=== PATIENT | male | born 1995 | race Caucasian/White ===

== ENCOUNTER 2019-08-16 10:40 | Emergency (ER) | payer MEDICAID ==
--- NOTE | 2019-08-16 10:45 | EDM.PDOC ---
ED HPI GENERAL MEDICAL PROBLEM - General Chief Complaint: Upper Extremity Injury/Pain Stated Complaint: LT RING FINGER INJURY Time Seen by Provider: 08/16/19 10:45 Source of Information: Reports: Patient History Limitations: Reports: No Limitations - History of Present Illness INITIAL COMMENTS - FREE TEXT/NARRATIVE: 24-year-old male who reports he was playing basketball 2 days ago and the basketball jammed his left thumb and left fourth finger. He has had minor pain along the ulnar aspect of his left proximal thumb and also more severe pain in the left fourth finger. He has full range of motion in his left thumb and also feels that he has full strength in this area. He has limited range of motion in the left fourth finger and there is swelling and ecchymosis in this area as well. There is no redness or increased warmth in the fourth finger. He is rating the pain in his fourth finger as a 7/10. It is a sharp and throbbing pain that is worse with movement and with palpation. There are no open wounds. No other injuries. There are no other associated signs or symptoms. There are no other modifying factors. Onset: Other (2 days ago) Duration: Constant Location: Reports: Upper Extremity, Left (Left fourth finger and left thumb) Quality: Reports: Sharp, Throbbing Severity: Moderate Improves with: Reports: Rest Worsens with: Reports: Other (Palpation), Movement Context: Reports: Trauma Associated Symptoms: Reports: No Other Symptoms Treatments [employer]: Reports: Other (see below) - Related Data Allergies Allergy/AdvReac Type Severity Reaction Status Date / Time Penicillins Allergy Rash Verified 08/16/19 11:00 Home Meds: Home Meds Sulfamethoxazole/Trimethoprim [Bactrim Ds Tablet] 1 each PO BID #20 tablet 05/27 [Rx] Past Medical History Psychiatric History: Reports: Schizophrenia (On no medications.) - Infectious Disease History Infectious Disease History: Reports: MRSA - Past Surgical History Other Surgical History Comment: Incision and drainage of left fourth finger abscess (MRSA). Social & Family History - Tobacco Use Smoking Status *Q: Current Every Day Smoker - Alcohol Use Alcohol Use History: Yes Alcohol Use Frequency: Weekly - Living Situation & Occupation Occupation: Disabled Review of Systems - Review of Systems Review Of Systems: See Below Constitutional: Reports: No Symptoms Eyes: Reports: No Symptoms Ears: Reports: No Symptoms Nose: Reports: No Symptoms Mouth/Throat: Reports: No Symptoms Respiratory: Reports: No Symptoms Cardiovascular: Reports: No Symptoms GI/Abdominal: Reports: No Symptoms Genitourinary: Reports: No Symptoms Musculoskeletal: Reports: Other (Right hand dominant. Left fourth finger pain. Her left thumb pain) Skin: Reports: Bruising (Over left fourth finger) Neurological: Reports: No Symptoms ED EXAM, GENERAL - Physical Exam Exam: See Below Exam Limited By: No Limitations General Appearance: Alert, WD/WN, Mild Distress (Nontoxic appearing) Eye Exam: Bilateral Eye: EOMI, Normal Inspection Ears: Normal External Exam, Hearing Grossly Normal Ear Exam: Bilateral Ear: Auricle Normal Nose: Normal Inspection, Normal Mucosa, No Blood Throat/Mouth: Normal Inspection, Normal Lips, Normal Oropharynx, Normal Voice, No Airway Compromise Head: Atraumatic, Normocephalic Neck: Normal Inspection, Supple, Non-Tender, Full Range of Motion Respiratory/Chest: No Respiratory Distress, Lungs Clear, Normal Breath Sounds, No Accessory Muscle Use, Chest Non-Tender Cardiovascular: Normal Peripheral Pulses, Regular Rate, Rhythm, No Murmur Peripheral Pulses: 2+: Radial (L), Radial (R) GI/Abdominal: Normal Bowel Sounds, Soft, Non-Tender, No Mass Back Exam: Normal Inspection Extremities: Normal Capillary Refill, Limited Range of Motion (Left fourth finger.), Other (Ecchymosis over left fourth finger with swelling. There is full range of motion and full function in the left thumb. There is some mild tenderness over the left thumb ulnar collateral ligament area.) Neurological: Alert, Oriented, CN II-XII Intact, Normal Cognition, No Motor/ Sensory Deficits Skin Exam: Warm, Dry, Intact, Normal Color, No Rash Course - Vital Signs Last Recorded V/S: Last Vital Signs Temp 36.1 C 08/16/19 11:00 Pulse 76 08/16/19 11:00 Resp 17 08/16/19 11:00 BP 131/78 08/16/19 11:00 Pulse Ox 100 08/16/19 11:00 - Orders/Labs/Meds Orders: Active Orders 24 hr Category Date Time Status Hand Comp Min 3V Lt [CR] Stat Exams 08/16/19 11:20 Ordered - Radiology Interpretation Free Text/Narrative:: Left hand x-ray shows fracture of the radial, distal aspect of the proximal phalanx of the left fourth finger that is intra-articular and somewhat displaced. The left thumb and remainder of the left hand appears normal. - Re-Assessments/Exams Free Text/Narrative Re-Assessment/Exam: 08/16/19 12:40: The patient's left hand x-ray showed a fracture of the left fourth finger but nothing else was abnormal. In reexamining the patient's left hand, he has really no tenderness along the MCP area of the left thumb and he actually has full range of motion and full function in this area. I do not feel that he has a significant injury to this area. The left fourth finger fracture, however, will need follow-up with a hand specialist as it will most probably need operative repair. I discussed this with the patient and he asked me to discuss his case with the doctors at [facility] in [place]. I discussed the patient' s case with Dr. Eller, hand specialist at [facility], he recommended that the patient be placed in an AlumaFoam splint with the third and fourth fingers jovanny taped and with the fingers and a position of function. He also recommended that the patient call [phone] on Sunday to arrange to see one of the hand specialist in clinic so that evaluation and definitive surgical management could be arranged. I discussed this with the patient and precautions and reasons for return to the emergency department were discussed with the patient and detailed in his discharge instructions as well. Departure - Departure Time of Disposition: 12:50 Disposition: Home, Self-Care 01 Condition: Good Clinical Impression: Closed fracture of finger of left hand Qualifiers: Encounter type: initial encounter Finger: ring finger Phalanx: proximal Fracture alignment: displaced Qualified Code(s): S62.615A - Displaced fracture of proximal phalanx of left ring finger, initial encounter for closed fracture - Discharge Information Instructions: Finger Fracture, Adult, [id number] Referrals: PCP,None [Primary Care Provider] - Forms: ED Department Discharge Additional Instructions: You have a fracture of your left fourth finger. It is somewhat displaced and will most probably need surgery to correct this. You will need to call the hand specialty clinic at [facility] at [phone] on Sunday, 2019, and tell them that you have a finger fracture that will need surgery and that you were told to call to arrange an appointment with one of the hand surgeons. You should leave the splint intact on your third and fourth fingers at all times. Elevate your left hand higher than your heart level as much as you can. You may take ibuprofen and Tylenol as needed for pain. Back to the emergency department for redness, increased warmth, marked increase in pain or any other concerning sign or symptom. Sepsis Event Note (ED) - Focused Exam Vital Signs: Vital Signs Temp Pulse Resp BP Pulse Ox 08/16/19 11:00 36.1 C 76 17 131/78 100 - My Orders Last 24 Hours: My Active Orders 08/16/19 11:20 Hand Comp Min 3V Lt [CR] Stat - Assessment/Plan Last 24 Hours: My Active Orders 08/16/19 11:20 Hand Comp Min 3V Lt [CR] Stat
[2019-08-16 13:30] VITALS: BP 126/81; PULSE 66
--- NOTE | 2019-08-18 18:06 | CR ---
INDICATION: Left 4th finger and thumb pain, status post injury. LEFT HAND: Three views of the left hand were obtained 08/16/19 - no comparisons. A slightly depressed oblique fracture through the lateral aspect of the distal metaphysis of the proximal phalanx of the 4th left finger is noted with very minimal lateral offset of the proximal aspect of that large chip fracture fragment. The fracture fragment is depressed approximately 1 mm. No other bone or joint abnormality was identified. IMPRESSION: Fracture of the proximal phalanx of the 4th left finger with moderate deformity. MTDD
== END 2019-08-16 13:20 | disposition home or self-care (01) ==
LOC: FB.ED 10:40
DX: S62.615A Displaced fracture of proximal phalanx of left ring finger, initial encounter for closed fracture (principal); Z88.0 Allergy status to penicillin; F17.200 Nicotine dependence, unspecified, uncomplicated; W23.0XXA Caught, crushed, jammed, or pinched between moving objects, initial encounter
CPT/HCPCS: 73130-LT; 99283

== ENCOUNTER 2019-09-04 19:11 | Emergency (ER) | payer MEDICAID ==
--- NOTE | 2019-09-04 20:06 | EDM.PDOC ---
ED HPI GENERAL MEDICAL PROBLEM - General Chief Complaint: Upper Extremity Injury/Pain Stated Complaint: FINGER PAIN, POSSIBLE INFECTION Time Seen by Provider: 09/04/19 19:15 Source of Information: Reports: Patient History Limitations: Reports: No Limitations - History of Present Illness INITIAL COMMENTS - FREE TEXT/NARRATIVE: Patient presented to the ED because of increasing pain,swelling of the left 4th finger which he fractured after punching the wall on 08/16/19. He is supposed to follow up with ortho but never did. left ring finger Pain Score (Numeric/FACES): 9 - Related Data Allergies Allergy/AdvReac Type Severity Reaction Status Date / Time Penicillins Allergy Rash Verified 08/16/19 11:00 Home Meds: Home Meds Sulfamethoxazole/Trimethoprim [Bactrim Ds Tablet] 1 each PO BID #20 tablet 05/28/15 [Rx] Ibuprofen 800 mg PO TID PRN #30 tablet 09/04/19 [Rx] Sulfamethoxazole/Trimethoprim [Bactrim 400-80 MG] 1 each PO BID #10 tablet 09/04/19 [Rx] Past Medical History - Past Health History Medical/Surgical History: Denies Medical/Surgical History Musculoskeletal History: Reports: Other (See Below) Other Musculoskeletal History: states that he had MRSA infection in his left ring finger. Psychiatric History: Reports: Schizophrenia - Infectious Disease History Infectious Disease History: Reports: MRSA - Past Surgical History Other Surgical History Comment: Incision and drainage of left fourth finger abscess (MRSA). Social & Family History - Family History Family Medical History: Noncontributory - Tobacco Use Smoking Status *Q: Current Every Day Smoker Years of Tobacco use: 11 Packs/Tins Daily: 0.5 - Caffeine Use Caffeine Use: Reports: Coffee, Energy Drinks, Soda - Living Situation & Occupation Occupation: Disabled Review of Systems - Review of Systems Review Of Systems: See Below Constitutional: Reports: No Symptoms Ears: Reports: No Symptoms Nose: Reports: No Symptoms Mouth/Throat: Reports: No Symptoms Respiratory: Reports: No Symptoms Cardiovascular: Reports: No Symptoms GI/Abdominal: Reports: No Symptoms Genitourinary: Reports: No Symptoms Musculoskeletal: Reports: No Symptoms Skin: Reports: No Symptoms Neurological: Reports: No Symptoms Psychiatric: Reports: No Symptoms ED EXAM, GENERAL - Physical Exam Exam: See Below Exam Limited By: No Limitations General Appearance: Alert, No Apparent Distress Ears: Normal External Exam, Normal Canal Nose: Normal Inspection, Normal Mucosa Throat/Mouth: Normal Inspection, Normal Lips, Normal Teeth, Normal Gums Head: Atraumatic, Normocephalic Neck: Normal Inspection, Supple, Non-Tender, Full Range of Motion Respiratory/Chest: No Respiratory Distress, Lungs Clear, Normal Breath Sounds Cardiovascular: Normal Peripheral Pulses, Regular Rate, Rhythm, No Edema, No Gallop GI/Abdominal: Normal Bowel Sounds, Soft, Non-Tender, No Organomegaly Back Exam: Normal Inspection, Full Range of Motion Extremities: Normal Inspection, Normal Range of Motion, Other (tenderness and swelling proximal phalanx of left 4th finger. No erythema noted.) Course - Vital Signs Text/Narrative:: Splint was revised Bactrim DS 1 po x1 Ibuprofen 800 mg with tylenol 1000 mg po x1 Last Recorded V/S: Last Vital Signs Temp 36.7 C 09/04/19 20:15 Pulse 79 09/04/19 20:15 Resp 16 09/04/19 20:15 BP 134/76 09/04/19 20:15 Pulse Ox 98 09/04/19 20:15 - Orders/Labs/Meds Meds: Medications Discontinued Medications Generic Name Dose Route Start Last Admin Trade Name Freq PRN Reason Stop Dose Admin Acetaminophen 1,000 mg 09/04/19 20:09 09/04/19 20:16 Tylenol Extra Strength PO 09/04/19 20:10 1,000 mg ONETIME ONE Administration Ibuprofen 800 mg 09/04/19 20:09 09/04/19 20:16 Motrin PO 09/04/19 20:10 800 mg ONETIME ONE Administration Trimethoprim/Sulfamethoxazole 1 tab 09/04/19 20:09 09/04/19 20:16 Septra Ds PO 09/04/19 20:10 1 tab ONETIME ONE Administration Departure - Departure Time of Disposition: 20:05 Disposition: Home, Self-Care 01 Condition: Good Clinical Impression: Finger fracture, left - Discharge Information Prescriptions: Sulfamethoxazole/Trimethoprim [Bactrim 400-80 MG] 1 each PO BID #10 tablet Ibuprofen 800 mg PO TID PRN #30 tablet PRN Reason: Pain Instructions: Finger Fracture, Adult Referrals: PCP,None [Primary Care Provider] - Forms: ED Department Discharge Additional Instructions: Please read discharge instructions on finger fracture Take ibuprofen 800 mg with tylenol 1000 mg every 8 hours as needed for pain Bactrim DS, take 1 tablet twice daily for 10 days Follow up with orthopedic doctor this week Sepsis Event Note (ED) - Evaluation Sepsis Screening Result: No Definite Risk - Focused Exam Vital Signs: Vital Signs Temp Pulse Resp BP Pulse Ox 09/04/19 20:15 36.7 C 79 16 134/76 98 09/04/19 19:11 37.1 C 95 17 153/82 H 98
[2019-09-04] MEDS ORDERED: Sulfamethoxazole/Trimethoprim 800-160 MG Tab PO ONE (20:09)
[2019-09-04] MEDS ORDERED: Ibuprofen 800 MG Tab PO ONE (20:09)
[2019-09-04] MEDS ORDERED: Acetaminophen 500 MG Tab PO ONE (20:09)
[2019-09-05 01:05] VITALS: BP 134/76; PULSE 79
== END 2019-09-04 20:18 | disposition home or self-care (01) ==
LOC: FB.ED 19:11
DX: S62.605A Fracture of unspecified phalanx of left ring finger, initial encounter for closed fracture (principal); F17.210 Nicotine dependence, cigarettes, uncomplicated; Z88.0 Allergy status to penicillin; W22.8XXA Striking against or struck by other objects, initial encounter
CPT/HCPCS: 99282; 99283; A9270-GY

== ENCOUNTER 2024-04-10 11:08 | Emergency (ER) | payer MEDICAID ==
[2024-04-10 11:28] VITALS: BP 138/92; PULSE 92
[2024-04-10 11:56] LABS: BASOPHILS ABSOLUTE AUTO 0.1 x10-3/uL (0.0-0.3); BASOPHILS PERCENT AUTO 0.8 % (0.3-3.8); EOSINOPHILS ABSOLUTE AUTO 0.1 x10-3/uL (0.0-0.6); EOSINOPHILS PERCENT AUTO 1.3 % (0.1-6.8); HEMATOCRIT 46.4 % (38.3-50.1); HEMOGLOBIN 15.9 g/dL (12.9-17.7); LYMPHOCYTES ABSOLUTE AUTO 2.2 x10-3/uL (0.5-4.5); LYMPHOCYTES PERCENT AUTO 29.3 % (15.8-45.3); MEAN CORPUSCULAR HEMOGLOBIN 33.1 pg (27.0-33.3); MEAN CORPUSCULAR HGB CONC 34.3 g/dL (28.7-35.3); MEAN CORPUSCULAR VOLUME 96.6 fL (80.8-98.7); MEAN PLATELET VOLUME 8.5 fL (6.7-11.0); MONOCYTES ABSOLUTE AUTO 0.6 x10-3/uL (0.0-1.2); MONOCYTES PERCENT AUTO 8.2 % (5.5-15.2); NEUTROPHILS ABSOLUTE AUTO 4.5 x10-3/uL (1.7-6.9); NEUTROPHILS PERCENT AUTO 60.4 % (40.3-71.8); PLATELET COUNT,PLT 198 x10(3)uL (117-477); WHITE BLOOD CELL COUNT,WBC 7.4 x10-3/uL (3.2-10.1)
[2024-04-10 11:58] LABS: BLOOD UREA NITROGEN,BUN 19 mg/dL (7-18); CALCIUM 9.1 mg/dL (8.6-10.2); CARBON DIOXIDE,CO2 26 mmol/L (21-32); CHLORIDE,CL 104 mmol/L (100-110); ESTIMATED GFR 105 mL/min (>60); GLUCOSE RANDOM 113 mg/dL (80-116); POTASSIUM,K 3.7 mmol/L (3.5-5.3); SODIUM,NA 140 mmol/L (135-145)
[2024-04-10 12:04] LABS: A/G RATIO 1.2; ALANINE AMINOTRANSFERASE,ALT 45 U/L (12-36); ALBUMIN 4.2 g/dL (3.5-5.2); ALKALINE PHOSPHATASE 60 IU/L (56-112); ASPARTATE AMNIOTRANSFERASE,AST 19 IU/L (5-25); BILIRUBIN TOTAL 0.4 mg/dL (0.1-1.3); PROTEIN TOTAL,TP 7.6 g/dL (6.0-8.0)
[2024-04-10 12:34] LABS: AMPHETAMINES SCREEN, URINE NEGATIVE (NEGATIVE); BARBITURATE SCREEN,URINE NEGATIVE (NEGATIVE); BENZODIAZEPINES SCREEN,URINE NEGATIVE (NEGATIVE); BUPRENORPHINE SCREEN,URINE NEGATIVE (NEGATIVE); METHADONE SCREEN, URINE NEGATIVE (NEGATIVE); METHAMPHETAMINE SCREEN, URINE NEGATIVE (NEGATIVE); OXYCODONE SCREEN,URINE NEGATIVE (NEGATIVE); THC SCREEN,URINE POSITIVE (NEGATIVE)
== END 2024-04-10 13:08 | disposition home or self-care (01) ==
LOC: FB.ED 11:08
DX: R56.9 Unspecified convulsions (principal); Z88.0 Allergy status to penicillin; Z79.899 Other long term (current) drug therapy
CPT/HCPCS: 36415; 80053; 80307; 85025; 99285